=== PATIENT | female | born 2000 | race Two or more races ===

== ENCOUNTER 2022-04-02 02:21 | Emergency (ER) | payer OTHER ==
[~2022-04-02] VITALS: Ht 154.9 cm; Wt 79.4 kg
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
--- NOTE | 2022-04-02 03:13 | NUR ---
XRAY AT BEDSIDE
--- NOTE | 2022-04-02 03:30 | NUR ---
URINE COLLECTED AND SENT TO LAB
[2022-04-02] MEDS ORDERED: IOHEXOL-300 100 ML VIAL IV ONE (03:44)
[2022-04-02] MEDS ORDERED: IV NS 0.9% 250 ML IV ONE (03:45)
--- NOTE | 2022-04-02 03:47 | NUR ---
20G IV ESTABLISHED AT [facility]. BLOOD DRAWN AND SENT TO LAB.
--- NOTE | 2022-04-02 03:49 | NUR ---
PT BEING TRANSPORTED TO CT VIA GURNEY WITH [employer] OFFICER
[2022-04-02 04:01] LABS: HEMATOCRIT 38 % (33-45); HEMOGLOBIN 12.9 g/dL (11.5-14.8); LYMPHOCYTES # (AUTO) 0.7 K/uL (0.8-4.8); LYMPHOCYTES % (AUTO) 6.8 % (20.0-44.0); MEAN CORPUSCULAR HGB CONC 34 g/dl (31.0-36.0); MEAN CORPUSCULAR VOLUME 89 fL (82-100); MONOCYTES # (AUTO) 0.8 K/uL (0.1-1.30); MONOCYTES % (AUTO) 7.5 % (2.0-12.0); NEUTROPHILS # (AUTO) 9.3 K/uL (1.8-8.9); NEUTROPHILS % (AUTO) 85.7 % (43.0-81.0); PLATELET COUNT (AUTO) 183 K/uL (150-450); RED BLOOD CELL COUNT(AUTO) 4.29 MIL/uL (4.0-5.2); WHITE BLOOD COUNT (AUTO) 10.8 K/uL (4.3-11.0)
[2022-04-02 04:11] LABS: CALCIUM, SERUM 8.3 mg/dL (8.5-10.1); CREATININE 0.7 mg/dL (0.6-1.3); POTASSIUM 3.8 mmol/L (3.5-5.1)
[2022-04-02 04:18] LABS: ALBUMIN 3.4 g/dL (3.4-5.0); BILIRUBIN,DIRECT 0.1 mg/dL (0.0-0.2); BILIRUBIN,TOTAL 0.6 mg/dL (0.2-1.0); BILIRUBIN,URINE NEGATIVE (NEGATIVE); COLOR,URINE YELLOW (YELLOW); LEUKOCYTE ESTERASE ,URINE NEGATIVE (NEGATIVE); NITRITE, URINE NEGATIVE (NEGATIVE); PROTEIN,URINE NEGATIVE (NEGATIVE); TOTAL PROTEIN, SERUM 6.7 g/dL (6.4-8.2); UGLUCOSE NEGATIVE (NEGATIVE); UROBILINOGEN,URINE 0.2 EU/dL (0.2)
[2022-04-02 04:21] LABS: BACTERIA,URINE Few /HPF (None Seen); SQUAMOUS EPITHELIAL CELL,UR Rare /HPF (None Seen); WBC,URINE 0-2 /HPF (0-3)
--- NOTE | 2022-04-02 05:01 | NUR ---
[facility] CALLED FOR TRAUMA TRANSFER REQUEST. TRAUMA REQUEST FAXED.
--- NOTE | 2022-04-02 05:09 | NUR ---
PT ACCEPTED TO [facility] ER BY DR ROWELL.
--- NOTE | 2022-04-02 05:10 | NUR ---
911 called for transfer as per request per Dr Ayala Whaley [facility].
[2022-04-02 05:17] VITALS: BP 118/79
--- NOTE | 2022-04-02 05:24 | NUR ---
PT PICKED UP BY RA Nanette VARELA FOR TRANSFER TO [facility].
--- NOTE | 2022-04-02 05:31 | NUR ---
REPORT GIVEN TO MARYCRUZ AT [facility]
== END 2022-04-02 05:38 | disposition short-term general hospital (02) ==
LOC: ER 02:22
DX: S36.116A Major laceration of liver, initial encounter (principal); S00.81XA Abrasion of other part of head, initial encounter; R07.89 Other chest pain; M25.562 Pain in left knee; F10.129 Alcohol abuse with intoxication, unspecified; F12.10 Cannabis abuse, uncomplicated; M25.559 Pain in unspecified hip; Z60.2 Problems related to living alone; V49.49XA Driver injured in collision with other motor vehicles in traffic accident, initial encounter; Y93.89 Activity, other specified; Y92.413 State road as the place of occurrence of the external cause; Y99.8 Other external cause status; Y90.4 Blood alcohol level of 80-99 mg/100 ml
CPT/HCPCS: 99291; 71045; 72170; 73564; 72125; 71260; 70450; 74177; 85025; 80048; 80076; 84703; 81001; 36415; 85730; 80320; 80307; J7050; Q9967; G0480